=== PATIENT | male | born 1990 | race Caucasian/White ===

== ENCOUNTER 2017-02-01 15:05 | Emergency (ER) | payer MEDICAID ==
[2017-02-01 15:15] VITALS: BP 90/62; RESP 18; TEMP 98.6
--- NOTE | 2017-02-01 16:11 | EDPHY ---
H & P Time Seen by Provider: 02/01/17 16:09 HPI/ROS: CHIEF COMPLAINT: Right hand injury Limitations: pt nonverbal, hx via caregiver HISTORY OF PRESENT ILLNESS: The patient is a 26 y/o male with autism presenting with a right hand injury. One of his house mates was in a power chair and ran over his hand today while the pt was crawling on the floor. He is using his hand normally, but occasionally says "Ow". No laceration or other injury. Pt has been acting normally since injury. Past Medical/Surgical History: PMH: Adjustment syndrome, Angleman syndrome, Autism, right eye blindness, hiatal hernia PSH: Left eye surgery for detached retina Social History: Lives in [place], single Smoking Status: Never smoked Physical Exam: General Appearance: Alert, no distress Skin: Warm and dry Extremities: Tire debora along dorsal aspect of right hand, no swelling, no apparent tenderness, moves hand/fingers normally without apparent pain Vascular: 2+ radial pulse Constitutional: Initial Vital Signs Temperature (C) 37.0 C 02/01/17 15:12 Heart Rate 95 02/01/17 15:12 Respiratory Rate 18 02/01/17 15:12 Blood Pressure 90/62 L 02/01/17 15:12 O2 Sat (%) 94 02/01/17 15:12 O2 Delivery Mode Room Air Allergies/Adverse Reactions: latex [Latex] Allergy (Mild, Verified 12/25/14 04:12) Latex, Natural Rubber Allergy (Verified 12/25/14 04:12) Home Medications: Medication Instructions Recorded Atropine 1% 1 drops LEFTEYE BID 12/25/14 Baclofen [Baclofen 10 mg (*)] 10 mg TUBE TID@,,12/25/14 Brimonidine/Timolol [Combigan (*)] 1 drop LEFTEYE TID@,,12/25/14 Clotrimazole 1% 1 paul TP BID@12/25/14 Dextran 70/Hypromellose 1 drop EACHEYE DAILY@12/25/14 [Artificial Tears] Herbals/Supplements -Info Only 1 ea TUBE DAILY 12/25/14 LORazepam [Ativan (*)] 0.5 mg TUBE DAILY@12/25/14 LORazepam [Ativan (*)] 0.5 mg TUBE DAILY@12/25/14 Levothyroxine [Synthroid 25 mcg 25 mcg TUBE DAILY10 12/25/14 (*)] Propranolol HCl [Inderal 20mg (*)] 20 mg TUBE HS@12/25/14 Ranitidine HCl [Zantac] 300 mg TUBE HS@12/25/14 Tobramycin/Dexamethasone [Tobradex 1 paul LEFTEYE QID@,,,12/25/14 Eye Ointment] acetaZOLAMIDE [Diamox] 250 mg TUBE QID@04,,,12/25/14 lamOTRIGine [Lamotrigine] 150 mg TUBE BID@,12/25/14 Esomeprazole Magnesium [Nexium] 40 mg TUBE BID #0 suspdr.pkt 12/26/14 Medical Decision Making - Diagnostics Imaging Results: XRAY: no fx Imaging: I viewed and interpreted images myself ED Course/Re-evaluation: The patient is a nonverbal 26 y/o male presenting with a right hand contusion after his hand was ran over by a power chair. There is no obvious swelling or deformity on exam. 1614: Right hand x-ray negative for osseous injury. Reassessed patient and discussed imaging findings. Return precautions provided. Departure - Departure Disposition: Home, Routine, Self-Care Clinical Impression: Contusion of hand, right Qualifiers: Encounter type: initial encounter Qualified Code(s): S60.221A - Contusion of right hand, initial encounter Condition: Good Instructions: Contusion in Adults (ED) Additional Instructions: Rest, ice, elevation. Follow up with your primary care provider for unimproved symptoms. Return to the emergency department for worsening pain, swelling, numbness, weakness or other concerns. Referrals: Omar Herring MD [Medical Doctor] - As per Instructions Report Scribed for: Norma Oliveira Report Scribed by: Gretta Austin Date of Report: 02/01/17 Time of Report: 16:10 Physician Review and Approval Statement: 02/01/17 16:10 Portions of this note were transcribed by a medical office technologist. I personally performed a history, physical exam, medical decision making, and confirmed accuracy of information the transcribed note.
[2017-02-01 16:31] VITALS: PULSE 68; O2SAT 96
== END 2017-02-01 16:29 | disposition home or self-care (01) ==
DX: S60.221A Contusion of right hand, initial encounter (principal); Z91.040 Latex allergy status; W23.0XXA Caught, crushed, jammed, or pinched between moving objects, initial encounter; Y92.009 Unspecified place in unspecified non-institutional (private) residence as the place of occurrence of the external cause; Y99.8 Other external cause status; Y93.89 Activity, other specified

== ENCOUNTER 2017-02-04 05:04 | Emergency (ER) | payer MEDICAID ==
--- NOTE | 2017-02-04 05:12 | EDPHY ---
H & P HPI/ROS: HPI The patient presents brought in by ambulance after his G or J tube has fallen out. Apparently the patient pulled it out. It is unclear how long it has been out for. He receives G-tube feeds in gets medications his tube. The nurse from [facility] is on her way to bring a replacement tube.. REVIEW OF SYSTEMS Unable to obtain due to patient's physical impairment PMHx: Angelman syndrome Soc Hx: Lives at [facility] PHYSICAL General Appearance: Alert, no distress Eyes: Pupils equal and round no pallor or injection ENT, Mouth: Mucous membranes moist Respiratory: Breathing comfortably Gastrointestinal: Abdomen is soft and non-tender, no masses, bowel sounds normal Neurological: A&O, moves all extremities Skin: Warm and dry, no rashes Musculoskeletal: Neck is supple non tender Extremities: symmetrical, full range of motion Psychiatric: there is no agitation Source: EMS Exam Limitations: Clinical condition, Physical impairment - Personal History Tetanus Vaccine Date: < 10 years - Medical/Surgical History Hx Asthma: No Hx Chronic Respiratory Disease: No Hx Diabetes: No Hx Cardiac Disease: No Hx Renal Disease: No Hx Cirrhosis: No Hx Alcoholism: No Hx HIV/AIDS: No Hx Splenectomy or Spleen Trauma: No Other PMH: Adjustment disorder, Angelman syndrome, anxiety disorder,autism/MR, blindness right eye, Jejunostomy tube, seizure, sever mental retardation, hiatal hernia, spasticity, left eye surgery for detached retina - Social History Smoking Status: Never smoked Constitutional: Initial Vital Signs Temperature (C) 36.7 C 02/04/17 05:10 Heart Rate 64 02/04/17 05:10 Respiratory Rate 16 02/04/17 05:10 Blood Pressure 112/72 02/04/17 05:10 O2 Sat (%) 96 02/04/17 05:10 O2 Delivery Mode Room Air Allergies/Adverse Reactions: latex [Latex] Allergy (Mild, Verified 02/04/17 05:06) Latex, Natural Rubber Allergy (Verified 02/04/17 05:06) Home Medications: Medication Instructions Recorded Atropine 1% 1 drops LEFTEYE BID 12/25/14 Baclofen [Baclofen 10 mg (*)] 10 mg TUBE TID@01,,12/25/14 Brimonidine/Timolol [Combigan (*)] 1 drop LEFTEYE TID@00,08,12/25/14 Clotrimazole 1% 1 paul TP BID@12/25/14 Dextran 70/Hypromellose 1 drop EACHEYE DAILY@12/25/14 [Artificial Tears] Herbals/Supplements -Info Only 1 ea TUBE DAILY 12/25/14 LORazepam [Ativan (*)] 0.5 mg TUBE DAILY@12/25/14 LORazepam [Ativan (*)] 0.5 mg TUBE DAILY@12/25/14 Levothyroxine [Synthroid 25 mcg 25 mcg TUBE DAILY12/25/14 (*)] Propranolol HCl [Inderal 20mg (*)] 20 mg TUBE HS@12/25/14 Ranitidine HCl [Zantac] 300 mg TUBE HS@12/25/14 Tobramycin/Dexamethasone [Tobradex 1 paul LEFTEYE QID@04,,,12/25/14 Eye Ointment] acetaZOLAMIDE [Diamox] 250 mg TUBE QID@04,,,12/25/14 lamOTRIGine [Lamotrigine] 150 mg TUBE BID@,12/25/14 Esomeprazole Magnesium [Nexium] 40 mg TUBE BID #0 suspdr.pkt 12/26/14 Medical Decision Making - Diagnostics Imaging Results: KUB demonstrates G tube within the abdomen, interpreted by me, radiology interpretation is pending. Differential Diagnosis: This is a 26-year-old male with chronic indwelling G-tube who presents after pulling his G-tube earlier in the evening. Staff from his housing are bringing a replacement tube and I anticipate we will be able to replace it without difficulty The nurse brought in the patient's tube which is a Darren. I have placed it without difficulty. It flushes easily. We have obtained KUB and it appears that the tube is in the stomach. The contrast dye appears to be somewhat dilute, making it difficult to see bowel enhancement. The patient is able to follow up today with Gastroenterology. Departure - Departure Disposition: Home, Routine, Self-Care Clinical Impression: Gastrojejunostomy tube dislodgement Condition: Good Instructions: How to Use and Care for Your PEG Tube (ED) Additional Instructions: We recommend that you follow up with Gastroenterology today. Please return to the emergency room if he is worse in any way.
[2017-02-04 05:13] VITALS: BP 112/72; PULSE 64; RESP 16; TEMP 98.1; O2SAT 96
== END 2017-02-04 07:56 | disposition home or self-care (01) ==
LOC: EDUNIT#
PROC: 0D2DXUZ Change Feeding Device in Lower Intestinal Tract, External Approach (ICD-10-PCS; principal; 2017-02-04)
DX: K94.19 Other complications of enterostomy (principal); Z91.040 Latex allergy status

== ENCOUNTER 2017-02-12 10:03 | Inpatient (IN) | payer MEDICAID ==
--- NOTE | 2017-02-06 18:10 | GHP ---
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 It dior s been irritated secondary to its position, which is in a chronic abdominal crease due to his body co ntractures. He currently requires continuous nursing attention to keep the skin from breaking down. He has been seen in our office to discuss removal of his current jejunostomy tube with transposition , creating a new jejunostomy versus gastric tube. The risks and options were fully discussed includi ng, but not limited to, bleeding, infection, nerve injury, bowel or gastric perforation, tube malfunc tion, the need for further surgery, and other problems, and his caretakers request to proceed. 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 PAST SURGICAL HISTORY: Jejunostomy tube placement. MEDICATIONS: Include Tylenol, armodafinil, baclofen, clotrimazole cream, Combigan eye drops, topical Desitin, fluticasone, hydrocortisone, ibuprofen, lamotrigine, levothyroxine, lorazepam, modafinil, n ystatin, polyethylene glycol, propranolol, ranitidine, trazodone, and zolpidem. ALLERGIES: No known drug allergies. Latex gloves. FAMILY MEDICAL HISTORY: The parents are alive and well. SOCIAL HISTORY: The patient requires 24-hour care. He does not smoke, do drugs, or drink alcohol. PHYSICAL EXAMINATION: GENERAL: Reveals a disabled 26-year-old male, with body contractures and in n o acute distress. HEENT: Pupils reactive. Sclerae without icterus. Frontal bossing. CHEST: Essence r to auscultation bilaterally. CARDIAC: Regular rate and rhythm. ABDOMEN: Soft, with thorax flexi on. J-tube site with irritation at chronic crease site. EXTREMITIES: Reveal marked joint contractu res. SKIN: Appears to be intact, without decubitus ulcers. NEUROLOGIC: Noncommunicative, but move s all extremities and appears to feel all extremities. Cranial nerve testing is not feasible. ASSESSMENT: 1. Malnutrition, with inability to take p.o. Current jejunostomy tube in poor position, with chroni c irritation secondary to contractures. 2. Angelman syndrome. PLAN: The plan is to proceed with removal of his current J-tube and creation of a new J-tube at a di fferent site. It is possible we will need to place a gastric tube. The risks and options have been discussed and again, his caretakers request to proceed. /[id number]/MODL
--- NOTE | 2017-02-12 08:31 | PDHPUP ---
History & Physical Update H&P update statement: This history and physical update is based on an assessment of the patient which was completed after admission or registration (within 24 hours), but prior to the surgery/procedure. H&P update: H&P reviewed & patient examined, no change in patient's condition since H&P completed
[~2017-02-12 10:03] MED LIST: BUPIVACAINE 0.5% 30 ML SDV ONE
[2017-02-12] MEDS ORDERED: LR 1,000 ML IV ONE (10:47)
[2017-02-12] MEDS ORDERED: LIDOCAINE 1% 2 ML INJ ID PRN (10:47)
[2017-02-12] MEDS ORDERED: cefOXitin SODIUM 2 GM in D5W 100 ML IV ONE (11:30)
--- NOTE | 2017-02-12 11:31 | PDANEPAE ---
ANE History of Present Illness exploratory laparotomy with J tube replacement ANE Past Medical History - Cardiovascular History Hx Hypertension: No Hx Arrhythmias: No Hx Chest Pain: No Hx Coronary Artery / Peripheral Vascular Disease: No Hx CHF / Valvular Disease: No Hx Palpitations: No Cardiovascular History Comment: ischemic heart disease? no cardiac issues per RN - Pulmonary History Hx COPD: No Hx Asthma/Reactive Airway Disease: No Hx Recent Upper Respiratory Infection: No Hx Oxygen in Use at Home: No Hx Sleep Apnea: No Sleep Apnea Screening Result - Last Documented: Negative Pulmonary History Comment: hx of pna - Neurologic History Hx Cerebrovascular Accident: No Hx Seizures: Yes Hx Dementia: Yes Neurologic History Comment: seizures secondary to angelman syndrome- last seizure 11/2016. chronic encephalopathy. autism. spastic hemiplegia. mental retardation - Endocrine History Hx Diabetes: No Endocrine History Comment: hypothyroidism - Renal History Hx Renal Disorders: Yes Renal History Comment: incontinent of bladder - Liver History Hx Hepatic Disorders: No - Neurological & Psychiatric Hx Hx Neurological and Psychiatric Disorders: Yes Neurological / Psychiatric History Comment: anxiety. depression - Cancer History Hx Cancer: No - Congenital Disorder History Hx Congenital Disorders: No Congenital History Comment: Severe mental retardation, Angelmans syndrome, Autism - GI History Hx Gastrointestinal Disorders: Yes Gastrointestinal History Comment: J tube. incontinent of bowel. gerd. hiatal hernia - Other Health History Other Health History: right eye blindness. chronic pain. body contractures. self- injurious behaviors- has scratches and bruises at times - Chronic Pain History Chronic Pain: Yes - Surgical History Prior Surgeries: 05/03/14 MRI with anesthesia. [facility]: 2009 and 2011 R foot surgery. 2011 J tube placement. 2011 retinal detachment resection conjunctiva ANE Review of Systems Review of systems is: negative Review of Systems: - Exercise capacity Exercise capacity: limited by disability METS (RN): 1 METS ANE Patient History - Allergies Allergies/Adverse Reactions: latex [Latex] Allergy (Verified 02/08/17 11:30) - Home Medications Home medications: home medication list seen and reviewed Home Medications: Baclofen [Baclofen 10 mg (*)] 10 mg TUBE TID 12/25/14 [Last Taken 02/12/17 08:00 ] Brimonidine/Timolol [Combigan (*)] 1 drop LEFTEYE BID 12/25/14 [Last Taken 02/11] LORazepam [Ativan (*)] 1 mg TUBE BID 12/25/14 [Last Taken 02/11/17] Levothyroxine [Synthroid 25 mcg (*)] 25 mg TUBE DAILY 12/25/14 [Last Taken 02/12 08:00] Propranolol HCl [Inderal 20mg (*)] 20 mg TUBE DAILY 12/25/14 [Last Taken ] Ranitidine HCl [Zantac] 300 mg TUBE DAILY 12/25/14 [Last Taken 02/12/17 08:00] Centrum Multivit-Mineral Liq TUBE DAILY 02/08/17 [Last Taken 02/11/17] LaMICtal 150 mg TUBE BID 02/08/17 [Last Taken 02/12/17 08:00] Latanoprost 0.005% 1 drop LEFTEYE DAILY 02/08/17 [Last Taken 02/11/17] Naltrexone HCl 25 mg TUBE DAILY 02/08/17 [Last Taken 02/11/17] Prilosec 20 mg 20 mg TUBE DAILY 02/08/17 [Last Taken 02/12/17 08:00] Trazodone HCl 200 mg TUBE HS 02/08/17 [Last Taken 02/11/17] ZOLPIDEM TARTRATE 5 mg TUBE DAILY AT 9PM 02/08/17 [Last Taken 02/11/17] - NPO status NPO Status: no food or drink >8 hours NPO Since - Liquids (Date): 02/10/17 NPO Since - Liquids (Time): 00:00 NPO Since - Solids (Date): 02/10/17 NPO Since - Solids (Time): 00:00 - Anes Hx Anes Hx: no prior problems - Smoking Hx Smoking Status: Never smoked - Family Anes Hx Family Anes Hx: none Family Hx Anesthesia Complications: unknown ANE Labs/Vital Signs - Vital Signs Height: 182.88 cm Weight: 41.095 kg ANE Physical Exam - Airway Neck exam: decreased ROM Mallampati Score: Unable to assesss Mouth exam: poor dentition - Pulmonary Pulmonary: no respiratory distress - Cardiovascular Cardiovascular: regular rate and rhythym - ASA Status ASA Status: III ANE Anesthesia Plan Anesthesia Plan: general endotracheal anesthesia
[2017-02-12] MEDS ORDERED: DEXAMETHASONE 4 MG/ML VIAL ONE (12:11)
[2017-02-12] MEDS ORDERED: ONDANSETRON 4 MG/2 ML VIAL ONE (12:11)
[2017-02-12] MEDS ORDERED: LIDOCAINE 2% 100 MG/5 ML SYR ONE (12:11)
[2017-02-12] MEDS ORDERED: fentaNYL 100 MCG/2 ML INJ ONE (12:12)
[2017-02-12] MEDS ORDERED: PROPOFOL 200 MG/20 ML VIAL ONE (12:12)
[2017-02-12 12:16] LABS: HEMATOCRIT 41.4 % (40.0-51.0); HEMOGLOBIN 14.4 g/dL (13.7-17.5); MEAN CELL HEMOGLOBIN 32.9 pg (27.9-34.1); MEAN CELL HEMOGLOBIN CONCENTR. 34.8 g/dL (32.4-36.7); MEAN CELL VOLUME 94.5 fL (81.5-99.8); RED BLOOD CELL COUNT 4.38 10^6/uL (4.40-6.38); RED CELL DISTRIBUTION WIDTH 12.1 % (11.5-15.2)
[2017-02-12 12:38] LABS: ANION GAP 10 mEq/L (8-16); CALCIUM 9.5 mg/dL (8.5-10.4); CARBON DIOXIDE 27 mEq/l (22-31); CHLORIDE 104 mEq/L (97-110); CREATININE 0.6 mg/dL (0.7-1.3); GLOMERULAR FILTRATION RATE > 60; GLUCOSE 81 mg/dL (70-100); POTASSIUM 4.6 mEq/L (3.5-5.2); SODIUM 141 mEq/L (134-144)
[2017-02-12] MEDS ORDERED: ROCURONIUM 50 MG/5 ML VIAL ONE (13:20)
[2017-02-12] MEDS ORDERED: SUGAMMADEX SODIUM 200 MG/2 ML VIAL IVP ONE (13:20)
[2017-02-12] MEDS ORDERED: OXYCODONE/APAP 5/325 TAB PO PRN (13:34)
[2017-02-12] MEDS ORDERED: ONDANSETRON 4 MG/2 ML VIAL IVP PRN ×2 (13:34→13:50)
--- NOTE | 2017-02-12 13:38 | POSTOPPROG ---
Post Op Note Date of Operation: 02/12/17 Surgeon: Carlo Lima Service Station Operator: Marie Crow Anesthesiologist: Dominick Weir Anesthesia: GET(General Endotracheal) Pre-op Diagnosis: FTT, Jtube malfunction need for feeding tube, Angelman's, contractures Post-op Diagnosis: same Indication: 26 Y M FTT c Jtube malfunction, leaking, skin breaskdown 2/2 contractures. Procedure: repair of enterocutaeous fistula, G tube placement Findings: viable stomach easily accessible Inf/Abcess present in the surg proc area at time of surgery?: No EBL: Minimal Complications: none
[2017-02-12] MEDS ORDERED: HYDROCODONE/APAP 5/325 TAB TUBE PRN (13:50)
[2017-02-12] MEDS ORDERED: HYDROmorphONE/DILAUDID 1 MG/ML INJ IVP PRN (13:50)
[2017-02-12] MEDS ORDERED: DEXAMETHASONE 4 MG/ML VIAL IVP PRN (13:50)
[2017-02-12] MEDS ORDERED: NALOXONE HCL 0.4 MG/ML INJ IVP PRN (13:50)
[2017-02-12] MEDS ORDERED: PROMETHAZINE HCL 25 MG/ML INJ IVP PRN (13:50)
[2017-02-12] MEDS ORDERED: fentaNYL 100 MCG/2 ML INJ IVP PRN (13:50)
[2017-02-12] MEDS ORDERED: ACETAMINOPHEN 500 MG TAB TUBE PRN (13:50)
--- NOTE | 2017-02-12 14:50 | POSTANESTH ---
Post Anesthetic Evaluation Cardiovascular Status: Normal, Stable, Similar to Pre-Op Cond Respiratory Status: Normal, Stable, Similar to Pre-op Cond. Level of Consciousness/Mental Status: Mildly Sleepy, Arousable, Other, See Comment (non verbal) Pain Control: Adequate, Prn Tx Ordered Nausea/Vomiting Control: Adequate, Prn Tx Ordered Complications Possibly Related to Anesthesia: None Noted
[2017-02-12] MEDS: NS W/ 20 KCl/L 1,000 ML IV SCH ×2 (15:29→23:29)
[2017-02-12] MEDS: HYDROmorphone HCL/NS/PF 0.4 MG/2 ML SYR IVP PRN ×4 (16:01→22:57)
[2017-02-13] MEDS: HYDROmorphone HCL/NS/PF 0.4 MG/2 ML SYR IVP PRN ×4 (00:49→08:23)
[2017-02-13] MEDS: NS W/ 20 KCl/L 1,000 ML IV SCH ×3 (07:31→23:15)
--- NOTE | 2017-02-13 09:32 | WOCRNPDOC ---
WOCRN Advanced Assessment Note - Skin Integrity Problem, Advanced Assess Right Greater Trochanter Dressing Type: Open to Air Exudate Amount: None Nsihi Wound Tissue: Blanching, Erythema Site Measurement - Head-to-Toe Length X Width X Depth (cm): 4.5x5.5x0 Skin Integrity Problem Comment: Area blanching but could easily become a pressure injury. Patient lies on right side preferably. Caregiver in room and understands possible consequence of a pressure injury. Area was covered with an allevyn life dressing to help protect it. Offload area for 5 min Q1 hour in bed.
[2017-02-13] MEDS ORDERED: ACETAMINOPHEN 160 MG/5 ML UDCUP PO PRN (09:40)
--- NOTE | 2017-02-13 09:47 | SOAPPROG ---
SOAP Progress Note Assessment/Plan: Assessment/Plan: 26 Y m c Angelman's syndrome, whole body contractures, s/p jtube removal with repair of enterocutaneous fistula and g tube placement. Doing well. Pain controlled. Added liquid tylenol. Clears and crackers for comfort as desired. Nutrition consult requested. Might consider different feeding schedule/formula now that he has Gtube. Dispo: pending. Possibly home today with family and care takers vs in am. Await nutrition input. S: some twinging with pain. O: alert, nonverbal, appears comfortable. no wob rrr abd soft inc cdi gtube site cdi former j tube site with expected serosanguinous drainage. 02/13/17 09:42 Objective: Vital Signs Temp Pulse Resp BP Pulse Ox 37.6 C 69 18 112/73 95 02/13/17 07:44 02/13/17 07:44 02/13/17 07:44 02/13/17 07:44 02/13/17 07:44 Laboratory Results 02/12/17 11:50 02/12/17 11:50 02/12/17 02/13/17 02/14/17 05:59 05:59 05:59 Intake Total 868 Output Total 30 Balance 838 ICD10 Worksheet Patient Problems: Problems Problem Status Onset Anemia Active Decubitus ulcer Active Fever Active Leukocytosis Active Methicillin resistant staphylococcus aureus carrier Active agitation Active Attention to gastrostomy tube Acute Contusion of hand, right Acute
[2017-02-13] MEDS ORDERED: ACETAMINOPHEN 500 MG TAB PO PRN (10:21)
[2017-02-13] MEDS: ACETAMINOPHEN 160 MG/5 ML UDCUP PO PRN ×2 (10:52→22:34)
--- NOTE | 2017-02-13 15:16 | ASMTCASEMG ---
Living Arrangements What is your living Answers: With Partner arrangement? Who do you live with? Type Of Residence What kind of residence do Answers: House you live in? Discharge Plan Comments Coordination Status Comments Notes: Pt is a 26 y/o man admitted for failure to thrive and feeding difficulties. Pt had his j-tube removed and had surgical intervention to place working a g-tube. CM met w/ Mom who is a retired physical therapist. Pt has a team of supportive caregivers and outpatient physicians CM available for changes. Date Signed: 02/13/2017 03:15 PM Electronically Signed By:YELENA Cantrell
[2017-02-13] MEDS ORDERED: ZINC OXIDE TP PRN (19:42)
[2017-02-13] MEDS ORDERED: levETIRAcetam 500 MG TAB PO ONE (19:49)
[2017-02-13] MEDS ORDERED: DESITIN MAX STRENGTH OINTMENT TP PRN (19:59)
[2017-02-13] MEDS: levETIRAcetam 500 MG/5 ML UDCUP TUBE SCH (20:01)
[2017-02-13] MEDS: LORazepam 0.5 MG TAB TUBE SCH (20:01)
[2017-02-13] MEDS ORDERED: NALTREXONE HCL 50 MG TAB TUBE SCH (21:00)
[2017-02-13] MEDS ORDERED: traZODone 100 MG TAB TUBE SCH (21:00)
[2017-02-13] MEDS ORDERED: NON-FORMULARY NEW DRUG (Lamotrigine [Lamictal] 150 MG) TUBE SCH (21:00)
[2017-02-13] MEDS ORDERED: PROPRANOLOL HCL 20 MG TAB TUBE SCH (21:00)
[2017-02-13] MEDS ORDERED: TOBRAMYCIN/DEXAMETH 5 ML OPHT.BTL LEFTEYE SCH (21:00)
[2017-02-13] MEDS ORDERED: HYPROMELLOSE LEFTEYE SCH (21:00)
[2017-02-13] MEDS: BACLOFEN 10 MG TAB TUBE SCH (22:30)
[2017-02-13] MEDS: lamoTRIgine 100 MG TAB TUBE SCH (22:31)
[2017-02-13] MEDS: CARBOXYMETHYLCELLULOSE 1% 0.4 ML DROPERETTE LEFTEYE SCH (22:32)
[2017-02-13] MEDS: LATANOPROST 0.005% 2.5 ML OPHT DROPS LEFTEYE SCH (22:33)
[2017-02-13] MEDS: BRIMONIDINE/TIMOLOL 5 ML OPHT.BTL LEFTEYE SCH (22:33)
[2017-02-13 23:18] VITALS: RESP 16
[2017-02-14] MEDS ORDERED: ZOLPIDEM TARTRATE 5 MG TAB TUBE SCH (01:00)
[2017-02-14] MEDS: ACETAMINOPHEN 160 MG/5 ML UDCUP PO PRN ×2 (04:00→10:07)
[2017-02-14 04:15] VITALS: PULSE 71
[2017-02-14] MEDS: CARBOXYMETHYLCELLULOSE 1% 0.4 ML DROPERETTE LEFTEYE SCH ×2 (05:24→13:05)
[2017-02-14] MEDS: NS W/ 20 KCl/L 1,000 ML IV SCH (06:09)
[2017-02-14 08:24] VITALS: BP 98/73; TEMP 98.9; O2SAT 96
[2017-02-14] MEDS ORDERED: LANSOPRAZOLE SUSP 30MG/10ML UDSYR (Adult) TUBE SCH (09:00)
[2017-02-14] MEDS ORDERED: NON-FORMULARY NEW DRUG (Omeprazole [Omeprazole] 40 MG) TUBE SCH (09:00)
[2017-02-14] MEDS ORDERED: LEVOTHYROXINE 25 MCG TAB TUBE SCH ×2 (09:00)
[2017-02-14] MEDS ORDERED: RANITIDINE HCL 150 MG/10 ML UDCUP TUBE SCH (09:00)
[2017-02-14] MEDS ORDERED: ENOXAPARIN 40 MG/0.4 ML SYR SC SCH (09:00)
--- NOTE | 2017-02-14 09:18 | PDIAF ---
- Diagnosis Diagnosis: s/p G tub placement Code Status: Full Code - Medication Management Discharge Medications: Medications to Continue on Transfer Baclofen [Baclofen 10 mg (*)] 10 mg TUBE TID 12/25/14 [Last Taken 02/12/17 08:00 ] Brimonidine/Timolol [Combigan (*)] 1 drop LEFTEYE BID 12/25/14 [Last Taken 02/11] LORazepam [Ativan (*)] 1 mg TUBE BID@,20 12/25/14 [Last Taken 02/11/17] Levothyroxine [Synthroid 25 mcg (*)] 25 mcg TUBE DAILY 12/25/14 [Last Taken 10/22 08:00] Propranolol HCl [Inderal 20mg (*)] 20 mg TUBE HS 12/25/14 [Last Taken 02/11/17] Ranitidine HCl [Zantac] 300 mg TUBE DAILY 12/25/14 [Last Taken 02/12/17 08:00] Latanoprost 0.005% [Xalatan 0.005% (*)] 1 drops LEFTEYE BID 02/08/17 [Last Taken 02/11/17] Multivit-Minerals/Ferrous Gluc [Centrum Multivit-Mineral Liq] 9 mg TUBE DAILY [Last Taken 02/11/17] Naltrexone HCl [Revia] 25 mg TUBE HS 02/08/17 [Last Taken 02/11/17] Omeprazole 40 mg TUBE DAILY 02/08/17 [Last Taken 02/12/17 08:00] Zolpidem Tartrate [Ambien 5MG (*)] 5 mg TUBE DAILY@2130 02/08/17 [Last Taken 09/22] lamoTRIgine [Lamictal] 150 mg TUBE BID 02/08/17 [Last Taken 02/12/17 08:00] traZODone [traZODONE 100MG (*)] 200 mg TUBE HS 02/08/17 [Last Taken 02/11/17] Herbals/Supplements -Info Only 1 ea PO DAILY 02/12/17 [Last Taken Unknown] Hypromellose [GENTEAL SEVERE] 1 paul LEFTEYE QID 02/12/17 [Last Taken Unknown] Tobramycin/Dexameth [Tobradex opht drops (*)] 1 drops LEFTEYE HS 02/12/17 [Last Taken Unknown] Zinc Oxide [Desitin] 1 paul TP PRN PRN 02/12/17 [Last Taken Unknown] Discharge Medications: Refer to the Discharge Home Medication list for PRN reason. - Orders Services needed: Home Retirement Care Face to Face: I certify that this patient was under my care and that I had the required [id number] encounter meeting the encounter requirements on the discharge day. My findings support the fact that the patient is homebound as defined in Home Care Face to Face Continued: CMS Chapter 7 Medicare Benefits Manual 30.1.1 , The condition of the patient is such that there exists a normal inability to leave home and consequently, leaving home would require a considerable and taxing effort. Diet Recommendation: other (see nutrition consult/assesment ) Tube feeding: see nutrition Wound Care Instructions: see wound care instructions - Follow Up Care Current Providers and Referrals: Jodie Watson MD [Primary Care Provider] -
--- NOTE | 2017-02-14 09:22 | SOAPPROG ---
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
[2017-02-14] MEDS: levETIRAcetam 500 MG/5 ML UDCUP TUBE SCH (10:09)
[2017-02-14] MEDS: lamoTRIgine 100 MG TAB TUBE SCH (10:10)
[2017-02-14] MEDS: BACLOFEN 10 MG TAB TUBE SCH (10:11)
[2017-02-14] MEDS: BRIMONIDINE/TIMOLOL 5 ML OPHT.BTL LEFTEYE SCH (10:15)
[2017-02-14] MEDS: LATANOPROST 0.005% 2.5 ML OPHT DROPS LEFTEYE SCH (10:15)
[2017-02-14] MEDS: LORazepam 0.5 MG TAB TUBE SCH (10:16)
--- NOTE | 2017-02-14 10:27 | ASMTCMCOM ---
CM Note CM Note Notes: CM spoke w/surgical PA, pt can dc back to senior living that provides 29/10 care. Carlo Daniel notified, final orders faxed. They will pick him up at noon with their [facility] villa to give report. Father notified, WHIT available for any changes. Date Signed: 02/14/2017 10:26 AM Electronically Signed By:Jacquelyn Simon RN
--- NOTE | 2017-02-15 10:18 | ASDISCHSUM ---
Discharge Information Plan Status:[facility] Medically Cleared to Leave: Discharge Date:02/14/2017 01:05 PM CM D/C Disposition: ADT D/C Disposition:Home, Routine, Self-Care Projected Discharge Date:02/14/2017 01:05 PM Transportation at D/C:Wheelchair Van Discharge Delay Reason: Follow-Up Date:02/14/2017 01:05 PM Discharge Slot: Final Diagnosis: Placement Information Patient Contact Information Contact Name:MONA Relationship:Father Address:[address] Work Phone: City:[place] [facility] Phone: State/Zip Code: [address] Email: Financial Information Financial Class: Primary Plan Desc:[employer] Primary Plan Number:[id number] Secondary Plan Desc: Secondary Plan Number: Assessment Information [facility] Initial CM Assessment Living Arrangements What is your living Answers: With Partner arrangement? Who do you live with? Type Of Residence What kind of residence do Answers: House you live in? Discharge Plan Comments Coordination Status Comments Notes: Pt is a 26 y/o man admitted for failure to thrive and feeding difficulties. Pt had his j-tube removed and had surgical intervention to place working a g-tube. CM met w/ Mom who is a retired physical therapist. Pt has a team of supportive caregivers and outpatient physicians CM available for changes. Date Signed: 02/13/2017 03:15 PM Electronically Signed By:YELENA Cantrell [facility] CM Progress Note CM Note CM Note Notes: WHIT spoke w/surgical PA, pt can dc back to senior living that provides 24/7 care. Carlo Sanchez notified, final orders faxed. They will pick him up at noon with their van, RN to give report. Father notified, CM available for any changes. Date Signed: 02/14/2017 10:26 AM Electronically Signed By:Jacquelyn Simon RN Intervention Information
--- NOTE | 2017-02-25 14:40 | GOP ---
[f rep st] OPERATIVE REPORT DATE OF OPERATION: 02/12/2017 SURGEON: Carlo Lima MD [employer] DEVELOPER: TIFFANY Burnett PREOPERATIVE DIAGNOSIS: 1. Malfunctioning jejunostomy tube. 2. Fairly minimally handicapped. POSTOPERATIVE DIAGNOSIS: PROCEDURE PERFORMED: 1. Feeding gastrostomy tube. 2. Closure of an enterocutaneous fistula. FINDINGS: DESCRIPTION OF PROCEDURE: Patient was taken to the operating room where he received satisfactory gen eral endotracheal anesthesia. He was placed in supine position, prepped and draped in the usual steri le fashion. A short midline abdominal incision was made and carried through the linea alba. Peritoneu m was carefully entered. Stomach was readily accessible for placement of gastrostomy tube. Prior to t hat, however, the jejunostomy tube was removed and the jejunum was dissected free from the abdominal wall. The enterotomy was debrided and then closed with a running 3-0 Vicryl suture in a transverse fa shion and multiple interrupted 3-0 silk everting sutures. The small bowel was returned back into the abdomen. Stomach was elevated up with [place] clamps. A 24-Mong[place] feeding tube was brought in through a separate stab incision. A 2-0 silk pursestring was placed in the anterior wall of the stomach. A s econd pursestring was placed outside of that. Gastrotomy was made. A feeding tube was introduced. The balloon was inflated. The inside pursestring was tied. A second pursestring was then tied trying to create an equal effect. The gastrostomy tube was secured to the abdominal wall with interrupted silk sutures. The gastrostomy tube would irrigate freely. The wound was irrigated. Hemostasis was clear. C lean closure. Instruments and drapes and gowns were then used and the wound was closed with a #1 PDS suture for the linea alba. The wound was infiltrated with 0.5% Marcaine. Subcu was closed with 3-0 Vi cryl and skin with a 4-0 Monocryl subcuticular stitch and dressed with Dermabond. The G tube was secu red to the exit site with interrupted 3-0 Prolene sutures. He tolerated the procedure well, was taken to the recovery room in good condition. There were no comp lications. Blood loss was negligible. /[id number]/MODL
== END 2017-02-14 13:05 | disposition home or self-care (01) | DRG 329 ==
LOC: F3E 10:03 → INTOOBSV 10:03 → F3E 14:52 → OBSVTOIN 02-14 09:05
PROVIDERS: ADMIT Surgery; ATTEND Surgery
DX: K94.19 Other complications of enterostomy (principal); G93.49 Other encephalopathy; E46 Unspecified protein-calorie malnutrition; Q93.5 Other deletions of part of a chromosome; F84.0 Autistic disorder; G40.909 Epilepsy, unspecified, not intractable, without status epilepticus; F41.9 Anxiety disorder, unspecified; H54.10 Blindness, one eye, low vision other eye, unspecified eyes; G89.29 Other chronic pain; E03.9 Hypothyroidism, unspecified; M24.50 Contracture, unspecified joint
CPT/HCPCS: J0694; J1100; J1170; J1650; J2001; J2405; J2704; J3010

== ENCOUNTER 2017-03-27 16:11 | Emergency (ER) | payer MEDICAID ==
[2017-03-27 16:54] VITALS: PULSE 85; RESP 18
--- NOTE | 2017-03-27 17:11 | EDPHY ---
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 Pt is incontinent and uses a diaper. h/o multiple UTI's, and this is similar to past presentations of UTI's. He was evaluated by his primary care provider who found no dermatological or structural etiology. The caretakers have tried to get a urine sample for the past week and have been unable. Tried a condom catheter, but he pulls it off. He does not have a fever, vomiting or any other symptoms. Information obtained through previous medical records including 02/01/17 ED visit and tour manager. REVIEW OF SYSTEMS: unable to obtain Past Medical/Surgical History: 1. Angelman syndrome 2. Autism 3. Adjustment disorder 4. Right-eye blindness 5. Hiatal hernia 6. Non-verbal 7. Wheelchair bound 8. Incontinent Social History: Lives in a correction, lives in [place], tour manager at bedside Smoking Status: Never smoked Physical Exam: General Appearance: Alert, pale, does not appear in pain Eyes: Pupils equal and round, no conjunctival injection ENT, Mouth: Mucous membranes moist Neck: Normal inspection Respiratory: Lungs are clear to auscultation Cardiovascular: Regular rate and rhythm Gastrointestinal: Abdomen is soft, feeding tube in place, no apparent tenderness : Normal in appearance, uncircumcised, no testicular swelling or apparent tenderness Neurological: Alert, nonverbal Skin: Warm and dry Extremities: contractures present, no erythema/wounds Constitutional: Initial Vital Signs Heart Rate 85 03/27/17 16:51 Respiratory Rate 18 03/27/17 16:51 O2 Sat (%) 94 03/27/17 16:51 O2 Delivery Mode Room Air Allergies/Adverse Reactions: latex [Latex] Allergy (Verified 03/27/17 16:51) Home Medications: Medication Instructions Recorded Baclofen [Baclofen 10 mg (*)] 10 mg TUBE TID 12/25/14 Brimonidine/Timolol [Combigan (*)] 1 drop LEFTEYE BID 12/25/14 LORazepam [Ativan (*)] 1 mg TUBE BID@10,20 12/25/14 Levothyroxine [Synthroid 25 mcg 25 mcg TUBE DAILY 12/25/14 (*)] Propranolol HCl [Inderal 20mg (*)] 20 mg TUBE HS 12/25/14 Ranitidine HCl [Zantac] 300 mg TUBE DAILY 12/25/14 Latanoprost 0.005% [Xalatan 0.005% 1 drops LEFTEYE BID 02/08/17 (*)] Multivit-Minerals/Ferrous Gluc 9 mg TUBE DAILY 02/08/17 [Centrum Multivit-Mineral Liq] Naltrexone HCl [Revia] 25 mg TUBE HS 02/08/17 Omeprazole 40 mg TUBE DAILY 02/08/17 Zolpidem Tartrate [Ambien 5MG (*)] 5 mg TUBE DAILY@0 02/08/17 lamoTRIgine [Lamictal] 150 mg TUBE BID 02/08/17 traZODone [traZODONE 100MG (*)] 200 mg TUBE HS 02/08/17 Herbals/Supplements -Info Only 1 ea PO DAILY 02/12/17 Hypromellose [GENTEAL SEVERE] 1 paul LEFTEYE QID 02/12/17 Tobramycin/Dexameth [Tobradex opht 1 drops LEFTEYE HS 02/12/17 drops (*)] Zinc Oxide [Desitin] 1 paul TP PRN PRN 02/12/17 Cefdinir [Omnicef Oral Liquid (*)] 300 mg TUBE BID #1 bottle 03/27/17 Medical Decision Making ED Course/Re-evaluation: The patient presents with sx consistent with his last UTI. cath UA ordered Multiple attempts to place a urinary catheter were unsuccessful. He is uncircumcised and the foreskin is tight and we are unable to retract the foreskin. The urethral orifice is not visualized. He is able to urinate. Given typical UTI symptoms and inability to place a urinary catheter, multiple options were considered. A condom catheter has been tried at his facility, but he typically pulls the catheter off. We (the caregiver and I) decided to place the patient on a course of antibiotics for now and have him follow up with a urologist in the office. Departure - Departure Disposition: Home, Routine, Self-Care Clinical Impression: Urinary tract infection Qualifiers: Urinary tract infection type: acute cystitis Hematuria presence: without hematuria Qualified Code(s): N30.00 - Acute cystitis without hematuria Condition: Good Referrals: Maxim Brown MD [Medical Doctor] - As per Instructions (Call to make an appointment.) Prescriptions: Cefdinir [Omnicef Oral Liquid (*)] 300 mg TUBE BID #1 bottle Report Scribed for: Norma Oliveira Report Scribed by: Haily Gomez Date of Report: 03/27/17 Time of Report: 17:42 Physician Review and Approval Statement: 03/27/17 17:42 Portions of this note were transcribed by a medical csr. I personally performed a history, physical exam, medical decision making, and confirmed accuracy of information the transcribed note.
[2017-03-27 18:26] VITALS: O2SAT 95
== END 2017-03-27 18:26 | disposition home or self-care (01) ==
DX: N30.00 Acute cystitis without hematuria (principal); Z91.040 Latex allergy status